=== PATIENT | male | born 1995 ===

== ENCOUNTER 2021-08-05 14:57 | Outpatient (REF) | payer SELFPAY | END 2021-08-05 14:58 | disposition home or self-care (01) | LOC: HO.HAP 14:57 | PROVIDERS: Visit Provider Internal Medicine | DX: Z13.89 Encounter for screening for other disorder (principal) ==

== ENCOUNTER 2023-01-31 14:07 | Outpatient (REF) | payer SELFPAY ==
--- NOTE | 2023-01-31 15:24 | MHC.AU.HA3 ---
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 Eye Assembler Repair Warranty: 09/13/2024 Screw Eye Assembler Loss and Damage Warranty: 09/13/2024 [facility] Service Plan: 09/13/2024 Battery Size: 675 Earmold/Dome/CShell/SlimTip:Microsonic M2000 full shell Blue Dispensed By: [facility] Date of Fittin07/15/2021 Left Ear: Make, Model, Color, Serial Number: Joselo Gomez P70-UP SN: [id number] Color: Black Screw Eye Assembler Repair Warranty: 09/13/2024 Screw Eye Assembler Loss and Damage Warranty: 09/13/2024 [facility] Service Plan: 09/13/2024 Battery Size: 675 Earmold/Dome/CShell/SlimTip: Microsonic M2000 full shell Blue Dispensed By: [facility] Date of Fittin07/15/2021 Follow-Up Summary: Romie reported his right tone hook broke and he taped it back together. Tubing extremely hard, discolored, and full of wax and moisture which had snapped end of tone hook. Cleaned both hearing aids and ear molds. Replaced both tone hooks and tubing. A listening check demonstrated that the hearing aids are in good working order. Recommendations: Hearing instrument maintenance in 6 months, or sooner if needed. Recommendations (Other): *No charge today as Hearing Aid Contract has date of service agreement to 09/13/2024 even though it states one year from date of fitting Diagnosis Code(s): Primary Diagnosis: H90.3 Bilateral Sensorineural Hearing Loss Signature: Provider: Archie Sauceda, [facility]
== END 2023-01-31 14:08 | disposition home or self-care (01) ==
LOC: HO.HAP 14:07
PROVIDERS: Visit Provider Internal Medicine
DX: Z13.89 Encounter for screening for other disorder (principal)

== ENCOUNTER 2023-09-20 12:47 | Outpatient (REF) | payer SELFPAY | END 2023-09-20 12:48 | disposition home or self-care (01) | LOC: HO.HAP 12:47 | PROVIDERS: PCP Internal Medicine; Visit Provider Internal Medicine | DX: Z13.89 Encounter for screening for other disorder (principal) ==

== ENCOUNTER 2023-10-13 09:10 | Outpatient (REF) | payer SELFPAY ==
--- NOTE | 2023-10-13 09:46 | MHC.AU.HA3 ---
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 Professor Repair Warranty: 09/13/2024 Neurology Professor Loss and Damage Warranty: 09/13/2024 [facility] Service Plan: 09/13/2024 Battery Size: 675 Earmold/Dome/CShell/SlimTip:Microsonic M2000 full shell Blue Type of Wax Guard: Dispensed By: [facility] Date of Fittin07/15/2021 Left Ear: Make, Model, Color, Serial Number: Joselo Gomez P70-UP SN: [id number] Color: Black Neurology Professor Repair Warranty: 09/13/2024 Neurology Professor Loss and Damage Warranty: 09/13/2024 [facility] Service Plan: 09/13/2024 Battery Size: 675 Assembly Machine Operator/Slim Tube: Earmold/Dome/CShell/SlimTip: Microsonic M2000 full shell Blue Dispensed By: [facility] Date of Fittin07/15/2021 Follow-Up Summary: Dispensed new earmolds. Fit looks good. Good subjective comfort and benefit reported. Gave him the old earmolds to keep as back up. Advised of remake period should there be any fit issues. Recommendations: Recommendations: Hearing instrument maintenance in 6 months, or sooner if needed. Please contact our clinic with any questions or concerns. Diagnosis Code(s): Primary Diagnosis: H90.3 Bilateral Sensorineural Hearing Loss Signature: Provider: Archie Crockett, [facility]
== END 2023-10-13 09:11 | disposition home or self-care (01) ==
LOC: HO.HAP 09:10
PROVIDERS: Visit Provider Internal Medicine
DX: Z46.1 Encounter for fitting and adjustment of hearing aid (principal); H90.3 Sensorineural hearing loss, bilateral
CPT/HCPCS: V5264

== ENCOUNTER 2024-07-19 10:24 | Outpatient (REF) | payer SELFPAY ==
--- NOTE | 2024-07-19 11:08 | MHC.AU.HA3 ---
Hearing Instrument Follow-Up- Binaural Date of Visit: 07/19/24 Right Ear: Make, Model, Color, Serial Number: Joselo Gomez P70-UP SN: [id number] Color: Black [employer] Repair Warranty: 09/13/2024 [employer] Loss and Damage Warranty: 09/13/2024 [facility] Service Plan: 09/13/2024 Battery Size: 675 Earmold/Dome/CShell/SlimTip:Microsonic M2000 full shell Blue Dispensed By: [facility] Date of Fittin07/15/2021 Left Ear: Make, Model, Color, Serial Number: Joselo Gomez P70-UP SN: [id number] Color: Black [employer] Repair Warranty: 09/13/2024 [employer] Loss and Damage Warranty: 09/13/2024 [facility] Service Plan: 09/13/2024 Battery Size: 675 Earmold/Dome/CShell/SlimTip: Microsonic M2000 full shell Blue Dispensed By: [facility] Date of Fittin07/15/2021 Follow-Up Summary: Romie reports concern that there is a hole in his right earmold. Notes he has been getting feedback. Found the ?hole to be a pock wilson in the earmold coating. Also noted bubbling in the coating on the external shell that earmold as well. Advised the earmolds are out of warranty but would not recommend replacing as they are less than one year old and still functional. Found both aids in need of maintenance. Stiff tubes, wax in tubes, tone hooks spinning. Cleaned aids, cleaned earmolds, replaced tubing and tone hooks. Listening check positive. Recommendations: Recommendations: Hearing instrument maintenance in 6 months, or sooner if needed. Diagnosis Code(s): Primary Diagnosis: H90.3 Bilateral Sensorineural Hearing Loss Signature: Provider: Archie Crockett, [facility]
== END 2024-07-19 10:25 | disposition home or self-care (01) ==
LOC: HO.HAP 10:24
PROVIDERS: Visit Provider Internal Medicine
DX: Z13.89 Encounter for screening for other disorder (principal)

== ENCOUNTER 2024-11-09 08:52 | Outpatient (REF) | payer SELFPAY ==
--- OUTSIDE RECORDS SUMMARY | 2024-11-09 09:05 | XMS_ITS | Data Portability ---
Author Organization [facility], , [facility] Address [address] [place] [address] Care Team Providers Care Talent Assistant Name Role Phone RASHEED MEJÍA Primary Care Provider Assessment Encounter Date Assessment Date Assessment LastModified by Organization Details LastModified Time 09/02/2020 09/02/2020 Patient agreed to this visit via a secure telehealth platform due to the COVID -19 pandemic. Patient understands this is a scheduled visit and the usual procedures with regard to billing and confidentialit y apply. Patient was notified that [place] [facility] [place] During the visit the patient? s medical history and medical record were reviewed. The patient was notified to call our office for worsening or urgent symptoms. [email or web address] Not available 09/02/2020 13:44:00 12/28/2022 12/28/2022 suggested carbamide peroxide otc for 50 % cerumen obstruction bilaterally [email or web address] Not available 12/28/2022 09:14:40 Plan of Treatment Reminders Order Date Submit Date Provider Last Modified By Organization Details Last Modified Time Details Appointments None recorded. Lab CBC 2023 [facility], [address] [place], [address], 10:47:37 BMP, serum or plasma 2023 [facility], [address] [place], [address], 09:40:25 iron + total iron-bindin g capacity (TIBC), serum 2023 [facility], [address] [place] [address], [address], 4 09:40:26 TSH, serum or plasma 2023 024 [facility], [address] [place] [address], [address], 4 16:02:58 BMP, serum or plasma 2022 023 [facility], [address] [place] [address], [address], 3 13:54:41 lipid panel, serum 2022 023 [facility], [address] [place] [address], [address], 3 13:54:42 HIV (1+2) antibodies, EIA, serum, reflex HIV-1 western blot (WB) 2021 022 [facility], [address] [place] [address], [address], 2 08:47:27 CT + NG DNA, PCR, unspecified specimen 2021 022 [facility], [address] [place] [address], [address], 2 14:00:19 RPR (rapid plasma reagin), serum 2021 022 [facility], [address] [place] [address], [address], 2 14:58:00 hsv (1+2) igg, serum 2021 022 [facility], [address] [place] [address], [address], 2 08:47:28 Referral orthopedic referral - left patellar pain for years 2020 021 [email or web address] [facility], [address] [facility], [place], [address], 1 12:36:27 Procedures trans-thora cic echocardiog ary (TTE) (PROC) - persistent orthostasis eval chamber size valve function, obstruction /HOCM physiologyn o HOCM signs on exam 2023 04 024 ELÍAS [facility], [address] [place], [address], 4 14:44:13 Surgeries None recorded. Imaging None recorded. Medication Orders None recorded. Patient TargetsNo targets recorded. Patient Instructions Encounter Date Encounter Id Patient Instructions Last Modified By Organization Details Last Modified Time 12/28/2022 [id number] Well Visit, Ages 18 to 65: Care Instructions [email or web address] Not available 12/28/2022 09:14:41 Reason for Referral Orthopedic Referral for Pain in left knee left patellar pain for years Referring Physician: Rasheed Mejía, Family Medicine, Encounter Date: 09/02/2020 Results Created Date Observation Date Name Description Value Unit Range Abnormal Flag Note LastModifiedBy Organization Detail LastModifiedTime 11/27/19 22 11/28/2021 HIV 1/2 ANTIG EN/AN TIBOD Y,FOU RTH GENER ATION W/RFL HIV Ag/Ab, 4TH gen NON-RE ACTIVE non-re active normal HIV-1 antig en and HIV-1 /HIV- 2 antib odies were not detec ha. There is no labor atory evide nce of HIV infec tion. PLEAS E NOTE: This infor matio n has been discl osed to you from recor ds whose confi denti ality may be prote cted by state law. If your state requi res such prote ction , then the state law prohi bits you from [facility] [place] [facility] er discl osure of the infor matio n witho ut the speci fic writt en conse nt of the perso n to whom it perta ins, or as other perales permi tted by law. A gener al autho rizat ion for the relea se of medic al or other infor matio n is NOT suffi cient for this purpo se. For addit ional infor jose luis alegria pleapril e refer to http: //[facility] viviane alegria.que stdia gnost ics.c om/fa q/FAQ 106 (This link is being provi ded for infor jose luis felton/ educa leanne l purpo ses only. ) The perfo rmanc e of this assay has not been clini chema valid ated in patie nts less than 2 years old. Not Available [facility] [address], [address], 11/28/2021 08:47:27 11/27/19 22 11/28/2021 HSV 1/2 IGG,T YPE SPECI FIC AB hsv 1 IgG, type specific Ab <0.90 index normal Not Available [facility] [address], [address], 11/28/2021 08:47:28 11/27/19 22 11/28/2021 HSV 1/2 IGG,T YPE SPECI FIC AB hsv 2 IgG, type specific Ab <0.90 index normal Index Inter preta tion ----- ----- ----- ---- <0.90 Negat vicente 0.90- 1.09 Equiv ocal >1.09 Posit vicente This assay utili zes recom binan t type- speci fic antig ens to diffe renti ate HSV-1 from HSV-2 infec tions . A posit vicente resul t canno t disti nguis h betwe en recen t and past infec tion. If recen t HSV infec tion is suspe cted but the resul ts are negat vicente or equiv ocal, the assay shoul d be repea ha in 4-6 weeks . The perfo rmanc e tara cteri stics of the assay have not been estab lishe d for pedia tric popul ation s, immun ocomp romis ed patie nts, or neona briseida scree frank. For addit ional infor matio n, pleas e refer to http: //[facility] Andra stDia gnost ics.c om/fa q/FAQ 118 (This link is being provi ded for infor matio nal/ educa leanne l purpo ses only. ) Not Available [facility] [address] [place], [place], [address], 11/28/2021 08:47:28 11/27/19 22 11/28/2021 HEPAT ITIS C AB W/REF L TO HCV RNA, QN, PCR hepatitis C antibody NON-RE ACTIVE non-re active normal Not Available [facility] [address] [place], [place], [address], 11/28/2021 08:47:28 11/27/19 22 11/28/2021 HEPAT ITIS C AB W/REF L TO HCV RNA, QN, PCR index <0.02 <1.00 normal HCV antib darian was non-r eacti ve. There is no labor atory evide nce of HCV infec tion. In most cases , no furth er actio n is requi red. Howev er, if recen t HCV expos ure is suspe cted, a test for HCV RNA (test code 84408 ) is sugge sted. For addit ional infor jose luis alegria pleas e refer to http: //[facility] andra stdia gnost ics.c om/fa q/FAQ 22v1 (This link is being provi ded for infor matio nal/ educa leanne l purpo ses only. ) Not Available [facility] [address], [place], [address], 11/28/2021 08:47:28 11/27/19 22 12/03/2021 RPR RPR NON-RE ACTIVE nonrea ctive Not Available [address], [place], [address], 12/03/2021 14:58:00 11/28/19 22 12/01/2021 CHLAM YDIA/ GC, URINE GORDON N. gonorrhoeae GC NEG negati ve normal Not Available [address], [address], 12/01/2021 14:00:19 11/28/19 22 12/01/2021 CHLAM YDIA/ GC, URINE GORDON C. trachomatis CT NEG negati ve normal Not Available [address], [address], 12/01/2021 14:00:19 01/27/20 22 01/27/2022 BASIC METAB OLIC PANEL sodium 138 mmol/ L 133-14 6 Not Available [facility] [address] [place], [address], 01/27/2022 00:29:09 01/27/20 22 01/27/2022 BASIC METAB OLIC PANEL chloride 102 mmol/ L 96-108 Not Available [facility] [address] [place], [address], 01/27/2022 00:29:09 01/27/20 22 01/27/2022 BASIC METAB OLIC PANEL potassium 4.0 mmol/ L 3.3-5. 1 Not Available [facility] [address] [place], [address], 01/27/2022 00:29:09 01/27/20 22 01/27/2022 BASIC METAB OLIC PANEL CO2 26 mmol/ L 21-35 Not Available [facility] ([facility]) [address] [place], [address], 01/27/2022 00:29:09 01/27/20 22 01/27/2022 BASIC METAB OLIC PANEL BUN 13 mg/dL 6-19 Not Available [facility] [address] [place], [address], 01/27/2022 00:29:09 01/27/20 22 01/27/2022 BASIC METAB OLIC PANEL creatinine 0.90 mg/dL 0.5-1. 5 Not Available [facility] [address] [place], [address], 01/27/2022 00:29:09 01/27/20 22 01/27/2022 BASIC METAB OLIC PANEL glucose 95 mg/dL 70-99 Not Available [facility] [address] [place], [address], 01/27/2022 00:29:09 01/27/20 22 01/27/2022 BASIC METAB OLIC PANEL calcium 8.5 mg/dL 8.4-10 .3 Not Available [facility] [address] [place], [address], 01/27/2022 00:29:09 01/27/20 22 01/27/2022 BASIC METAB OLIC PANEL eGFR >120 mL/mi n/1.7 3m2 >59 Estim ated glome rular filtr ation rate calcu lated using the CKD-E PI refit equat ion. Not Available [facility] [address] [place], [address], 01/27/2022 00:29:09 01/27/20 22 01/27/2022 BASIC METAB OLIC PANEL anion gap 14 mmol/ L 10-20 Not Available [facility] [address] [place], [address], 01/27/2022 00:29:09 01/27/20 22 01/27/2022 CPK (CREA ELAN KINAS E) creatine kinase 61 U/L 35-232 Not Available [facility] [address] [place], [address], 01/27/2022 00:29:11 01/27/20 22 01/27/2022 CBC AND DIFFE RENTI AL WBC 5.09 K/uL 4.00-1 1.00 Not Available [facility] [address] [place], [address], 01/27/2022 00:41:04 01/27/20 22 01/27/2022 CBC AND DIFFE RENTI AL RBC 4.56 M/uL 4.48-5 .88 Not Available [facility] ([facility]) [address] [place], [address], 01/27/2022 00:41:04 01/27/20 22 01/27/2022 CBC AND DIFFE RENTI AL HGB 13.2 g/dL 13.4-1 7.5 low Not Available [facility]) [address] [place] [address], [address], 01/27/2022 00:41:04 01/27/20 22 01/27/2022 CBC AND DIFFE RENTI AL HCT 38.1 % 38.0-5 1.0 Not Available [facility] ([facility]) [address] [place], [address], 01/27/2022 00:41:04 01/27/20 22 01/27/2022 CBC AND DIFFE RENTI AL plt 163 K/uL 140-43 0 Not Available [facility] ([facility]) [address] [place] [address], [address], 01/27/2022 00:41:04 01/27/2001/27/2022 CBC AND DIFFE RENTI AL MCV 83.6 fL 78.0-9 7.0 Not Available [facility] ([facility]) [address] [place] [address], [address], 01/27/2022 00:41:04 01/27/2001/27/2022 CBC AND DIFFE RENTI AL MCH 28.9 pg 25.0-3 3.0 Not Available [facility] ([facility]) [address] [place] [address], [address], 01/27/2022 00:41:04 01/27/20 22 01/27/2022 CBC AND DIFFE RENTI AL MCHC 34.6 g/dL 32.0-3 6.0 Not Available [facility] ([facility]) [address] [place] [address], [address], 01/27/2022 00:41:04 01/27/20 22 01/27/2022 CBC AND DIFFE RENTI AL RDW 14.1 % 11.0-1 5.0 Not Available [facility] ([facility]) [address] [place] [address], [address], 01/27/2022 00:41:04 01/27/20 22 01/27/2022 CBC AND DIFFE RENTI AL MPV 10.7 fL 8.4-12 .8 Not Available [facility] ([facility]) [address] [place] [address], [address], 01/27/2022 00:41:04 01/27/20 22 01/27/2022 CBC AND DIFFE RENTI AL NRBC 0.00 /100_ WBCs 0 Not Available [facility] ([facility]) [address] [place] [address], [address], 01/27/2022 00:41:04 01/27/20 22 01/27/2022 CBC AND DIFFE RENTI AL absolute NRBC 0.00 K/uL 0 Not Available [facility] ([facility]) [address] [place] [address], [address], 01/27/2022 00:41:04 01/27/20 22 01/27/2022 CBC AND DIFFE RENTI AL diff method Auto Not Available [facility] ([facility]) [address] [place] [address], [address], 01/27/2022 00:41:04 01/27/20 22 01/27/2022 CBC AND DIFFE RENTI AL neuts 46.9 % 43.0-7 5.0 Not Available [facility] ([facility]) [address] [place] [address], [address], 01/27/2022 00:41:04 01/27/20 22 01/27/2022 CBC AND DIFFE RENTI AL lymphs 40.9 % 18.2-4 7.4 Few atypi preston Lymph s seen. Not Available [facility] ([facility]) [address] [place], [address], 01/27/2022 00:41:04 01/27/20 22 01/27/2022 CBC AND DIFFE RENTI AL monos 10.0 % 4.00-1 1.00 Not Available [facility] ([facility]) [address] [place], [address], 01/27/2022 00:41:04 01/27/20 22 01/27/2022 CBC AND DIFFE RENTI AL eos 0.8 % 0.0-8. 0 Not Available [facility] ([facility]) [address] [place], [address], 01/27/2022 00:41:04 01/27/20 22 01/27/2022 CBC AND DIFFE RENTI AL basos 0.8 % 0.0-2. 0 Not Available [facility] ([facility]) [address] [place], [address], 01/27/2022 00:41:04 01/27/20 22 01/27/2022 CBC AND DIFFE RENTI AL granulocytes , immature (%) 0.6 % 0.0-0. 9 Not Available [facility] ([facility]) [address] [place], [address], 01/27/2022 00:41:04 01/27/20 22 01/27/2022 CBC AND DIFFE RENTI AL absolute neuts 2.39 K/uL 1.80-7 .70 Not Available [facility] ([facility]) [address] [place], [address], 01/27/2022 00:41:04 01/27/20 22 01/27/2022 CBC AND DIFFE RENTI AL absolute lymphs 2.08 K/uL 1.00-3 .10 Not Available [facility] ([facility]) [address] [place], [address], 01/27/2022 00:41:04 01/27/20 22 01/27/2022 CBC AND DIFFE RENTI AL absolute monos 0.51 K/uL 0.20-0 .80 Not Available [facility] ([facility]) [address] [place], [address], 01/27/2022 00:41:04 01/27/20 22 01/27/2022 CBC AND DIFFE RENTI AL absolute eos 0.04 K/uL 0.00-0 .80 Not Available [facility] ([facility]) [address] [place], [address], 01/27/2022 00:41:04 01/27/20 22 01/27/2022 CBC AND DIFFE RENTI AL absolute basos 0.04 K/uL 0.00-0 .09 Not Available [facility] ([facility]) [address] [place], [address], 01/27/2022 00:41:04 01/27/20 22 01/27/2022 CBC AND DIFFE RENTI AL granulocytes , immature 0.03 K/uL 0.00-0 .05 Not Available [facility] ([facility]) [address] [place], [address], 01/27/2022 00:41:04 01/28/20 22 01/27/2022 URINA LYSIS W/REF FARSHAD URINE CULTU RE color IRMA yellow abnormal Not Available [facility] [address] [place], [address], 01/27/2022 00:11:04 01/28/20 22 01/27/2022 URINA LYSIS W/REF FARSHAD URINE CULTU RE clarity Clear Not Available [facility] ([facility]) [address] [place], [address], 01/27/2022 00:11:04 01/28/20 22 01/27/2022 URINA LYSIS W/REF FARSHAD URINE CULTU RE glucose Negati ve negati ve Not Available [facility] ([facility]) [address] [place], [address], 01/27/2022 00:11:04 01/28/20 22 01/27/2022 URINA LYSIS W/REF FARSHAD URINE CULTU RE bili Negati ve negati ve Not Available [facility] ([facility]) [address] [place], [address], 01/27/2022 00:11:04 01/28/20 22 01/27/2022 URINA LYSIS W/REF FARSHAD URINE CULTU RE ketones Trace negati ve abnormal Not Available [facility] ([facility]) [address] [place], [address], 01/27/2022 00:11:04 01/28/20 22 01/27/2022 URINA LYSIS W/REF FARSHAD URINE CULTU RE specific gravity 1.025 1.005- 1.030 Not Available [facility] ([facility]) [address] [place], [address], 01/27/2022 00:11:04 01/28/20 22 01/27/2022 URINA LYSIS W/REF FARSHAD URINE CULTU RE blood Negati ve negati ve Not Available [facility] ([facility]) [address] [place], [address], 01/27/2022 00:11:04 01/28/20 22 01/27/2022 URINA LYSIS W/REF FARSHAD URINE CULTU RE pH 6.0 5.0-8. 0 Not Available [facility] ([facility]) [address] [place], [address], 01/27/2022 00:11:04 01/28/20 22 01/27/2022 URINA LYSIS W/REF FARSHAD URINE CULTU RE protein Negati ve negati ve Not Available [facility] ([facility]) [address] [place], [address], 01/27/2022 00:11:04 01/28/20 22 01/27/2022 URINA LYSIS W/REF FARSHAD URINE CULTU RE nitrite Negati ve negati ve Not Available [facility] ([facility]) [address] [place], [address], 01/27/2022 00:11:04 01/28/20 22 01/27/2022 URINA LYSIS W/REF FARSHAD URINE CULTU RE leukocyte esterase, ur Negati ve negati ve Not Available [facility] ([facility]) [address] [place], [address], 01/27/2022 00:11:04 01/28/20 22 01/27/2022 COVID DRAGAN ANNIE RESPI RATOR Y VIRAL ORDER (PRO) test ordered COVID, Flu has been ordere d Not Available [facility] [address] [place] [address], [address], 01/27/2022 01:11:33 01/28/20 22 01/27/2022 COVID DRAGAN ANNIE RESPI RATOR Y VIRAL ORDER (PRO) specimen source/descr iption NASOPH LELE AL SWAB Not Available [facility] ([facility]) [address] [place], [address], 01/27/2022 01:11:33 01/28/20 22 01/27/2022 COVID DRAGAN ANNIE RESPI RATOR Y VIRAL ORDER (PRO) influenza A PCR Not Detect ed not detect ed Not Available [facility] ([facility]) [address] [place], [address], 01/27/2022 01:11:33 01/28/20 22 01/27/2022 COVID DRAGAN ANNIE RESPI RATOR Y VIRAL ORDER (PRO) influenza B PCR Not Detect ed not detect ed Not Available [facility] ([facility]) [address] [place], [address], 01/27/2022 01:11:33 01/28/20 22 01/27/2022 COVID DRAGAN ANNIE RESPI RATOR Y VIRAL ORDER (PRO) sars-cov 2 (covid-19) PCR Not Detect ed not detect ed SARS- CoV-2 not detec ha Negat vicente resul ts do not precl ude SARS- CoV-2 infec tion and shoul d not be used as the sole basis for patie nt manag ement decis ions. Negat vicente resul ts must be combi sakshi with clini preston obser vatio ns, patie nt histo ry, and epide miolo gical infor matio n. This test has been autho rized by the FDA under an Emerg ency Use Autho rizat ion (EUA) for use by autho rized labor atori es. Not Available [facility] (Out[facility]) [address] [place], [address], 01/27/2022 01:11:33 12/29/19 23 12/28/2022 BASIC METAB OLIC PANEL glucose 74 mg/dL 70-100 Not Available [address], [address], 12/28/2022 13:54:41 12/29/19 23 12/28/2022 BASIC METAB OLIC PANEL BUN 16 mg/dL 7-18 Not Available [address], [address], 12/28/2022 13:54:41 12/29/19 23 12/28/2022 BASIC METAB OLIC PANEL creatinine 1.0 mg/dL 0.8-1. 3 Not Available [address], [address], 12/28/2022 13:54:41 12/29/19 23 12/28/2022 BASIC METAB OLIC PANEL B/C 16.0 ratio Not Available [address], [address], 12/28/2022 13:54:41 12/29/1912/28/2022 BASIC METAB OLIC PANEL GFR >=60ML /MIN mL/mi n normal >=60m L/min - Lanie l or midly reduc ed <60mL /min- Decre ased kidne y funct ion <15mL /min - Kidne y failu re [facility] calcu lates estim ated Glome rular Filtr ation Rate (eGFR ) using the Chron ic Kidne y Disea se Epide miolo gy Colla borat ion (CKD- EPI) Equat ion (Ryann moon et. al 2020) as recom wanda d by the Natio nal Kidne y Found ation . eGFR is based on age, serum creat inine , and sex. CKD-E PI does not calcu late eGFR by race, does not apply to child brian (age <18 years ), and shoul d not be used in pregn adrian. Not Available [address], [address], 12/28/2022 13:54:41 12/29/1912/28/2022 BASIC METAB OLIC PANEL sodium 142 mmol/ L 136-14 5 Not Available [address], [address], 12/28/2022 13:54:41 12/29/19 23 12/28/2022 BASIC METAB OLIC PANEL potassium 4.2 mmol/ L 3.5-5. 1 Not Available [address], [address], 12/28/2022 13:54:41 12/29/19 23 12/28/2022 BASIC METAB OLIC PANEL chloride 104 mmol/ L 96-107 Not Available [address], [address], 12/28/2022 13:54:41 12/29/19 23 12/28/2022 BASIC METAB OLIC PANEL anion gap 11.0 5.0-15 .0 Not Available [address], [address], 12/28/2022 13:54:41 12/29/19 23 12/28/2022 BASIC METAB OLIC PANEL CO2 27 mmol/ L 21-32 Not Available [address], [address], 12/28/2022 13:54:41 12/29/19 23 12/28/2022 BASIC METAB OLIC PANEL calcium 8.8 mg/dL 8.5-10 .3 Not Available [address], [address], 12/28/2022 13:54:41 12/29/19 23 12/28/2022 LIPID PANEL cholesterol 129 mg/dL <200 mg/dl Raudel able 200-2 39 mg/dl Borde rline High >240 mg/dl High Not Available [address], [address], 12/28/2022 13:54:42 12/29/19 23 12/28/2022 LIPID PANEL triglyceride s 114 mg/dL <150 mg/dL Lanie l 150-1 99 mg/dL Borde rline High 200-4 99 mg/dL High >500 mg/dL Very High Not Available [address], [address], 12/28/2022 13:54:42 12/29/19 23 12/28/2022 LIPID PANEL direct HDL 30 mg/dL <40 mg/dl - Major Risk for CHD >60 mg/dl - Negat vicente Risk for CHD Not Available [address], [address], 12/28/2022 13:54:42 12/29/19 23 12/28/2022 DIREC T LDL direct LDL 74 mg/dL RISK CATEG ORY LDL GOAL _ CHD or CHD Risk Equiv alent s <100 mg/dl (10-y ear risk >20%) 2+ Risk Facto rs <130 mg/dl (10-y ear risk <= 20%) 0-1 Risk Facto r? <160 mg/dl ? Almos t all peopl e with 0-1 risk facto r have a 10 year risk <10%, thus 10 year risk asses ment in peopl e with 0-1 risk facto r is not akinanabel gregg. Not Available [address], [address], 12/28/2022 13:54:43 10/05/1910/05/2023 CBC WBC 5.04 K/? ? ?L 4.23-9 .07 Not Available [address], [address], 10/05/2023 10:47:37 10/05/19 24 10/05/2023 CBC RBC 5.32 M/? ? ?L 4.63-6 .08 Not Available [address], [address], 10/05/2023 10:47:37 10/05/19 24 10/05/2023 CBC HGB 15.2 g/dL 13.7-1 7.5 Not Available [address], [address], 10/05/2023 10:47:37 10/05/19 24 10/05/2023 CBC HCT 45.9 % 40.1-5 1.0 Not Available [address], [address], 10/05/2023 10:47:37 10/05/19 24 10/05/2023 CBC MCV 86.3 fL 79.0-9 2.2 Not Available [address], [address], 10/05/2023 10:47:37 10/05/19 24 10/05/2023 CBC MCH 28.6 pg 25.7-3 2.2 Not Available [address], [address], 10/05/2023 10:47:37 10/05/19 24 10/05/2023 CBC MCHC 33.1 g/dL 32.3-3 6.5 Not Available [address], [address], 10/05/2023 10:47:37 10/05/19 24 10/05/2023 CBC plt 169 K/? ? ?L 163-33 7 Not Available [address], [address], 10/05/2023 10:47:37 10/05/19 24 10/05/2023 CBC MPV 11.7 fL 9.4-12 .4 Not Available [address], [address], 10/05/2023 10:47:37 10/05/19 24 10/05/2023 CBC neut% 45.0 % 34.0-6 7.9 Not Available [address], [address], 10/05/2023 10:47:37 10/05/19 24 10/05/2023 CBC neut# 2.27 1.78-5 .38 Not Available [address], [address], 10/05/2023 10:47:37 10/05/19 24 10/05/2023 CBC lymph % 42.1 % 21.8-5 3.1 Not Available [address], [address], 10/05/2023 10:47:37 10/05/19 24 10/05/2023 CBC lymph # 2.12 K/? ? ?L 1.32-3 .57 Not Available [address], [address], 10/05/2023 10:47:37 10/05/19 24 10/05/2023 CBC mono% 8.9 % 5.3-12 .2 Not Available [address], [address], 10/05/2023 10:47:37 10/05/19 24 10/05/2023 CBC mono# 0.45 0.30-0 .82 Not Available [address], [address], 10/05/2023 10:47:37 10/05/19 24 10/05/2023 CBC eo% 3.2 % 0.8-7. 0 Not Available [address], [address], 10/05/2023 10:47:37 10/05/19 24 10/05/2023 CBC eo# 0.16 0.04-0 .54 Not Available [address], [address], 10/05/2023 10:47:37 10/05/19 24 10/05/2023 CBC baso% 0.6 % 0.2-1. 2 Not Available [address], [address], 10/05/2023 10:47:37 10/05/19 24 10/05/2023 CBC baso# 0.03 0.00-0 .08 Not Available [address], [address], 10/05/2023 10:47:37 10/05/19 24 10/05/2023 CBC RDW-CV 13.2 % 11.6-1 4.4 Not Available [address], [address], 10/05/2023 10:47:37 10/05/19 24 10/05/2023 CBC Ig% 0.200 % 0.000- 1.500 Ig % >0.5 Indic ates possi ble Left Shift Not Available [address], [address], 10/05/2023 10:47:37 10/05/19 24 10/05/2023 CBC Ig# 0.010 0.000- 0.093 Not Available [address], [address], 10/05/2023 10:47:37 10/05/19 24 10/05/2023 CBC NRBC% 0.0 % 0.0-0. 2 Not Available [address], [address], 10/05/2023 10:47:37 10/05/19 24 10/05/2023 CBC NRBC# 0.000 0.000- 0.012 Not Available [address], [address], 10/05/2023 10:47:37 10/05/19 24 10/05/2023 TSH TSH 3.03 uIU/m L 0.50-6 .00 The Ameri can Colle ge of Endoc rinol ogy and Ameri can Thyro id Assoc iatio n recom mend goal TSH value s betwe en 0.4-4 .0 mIU/m L. Not Available [address], [address], 10/05/2023 16:02:58 10/05/19 24 10/06/2023 BASIC METAB OLIC PANEL glucose 87 mg/dL 70-100 Not Available [address], [address], 10/06/2023 09:40:25 10/05/19 24 10/06/2023 BASIC METAB OLIC PANEL BUN 14 mg/dL 7-18 Not Available [address], [address], 10/06/2023 09:40:25 10/05/19 24 10/06/2023 BASIC METAB OLIC PANEL creatinine 0.9 mg/dL 0.8-1. 3 Not Available [address], [address], 10/06/2023 09:40:25 10/05/1910/06/2023 BASIC METAB OLIC PANEL B/C 15.6 ratio Not Available [address], [address], 10/06/2023 09:40:25 10/05/1910/06/2023 BASIC METAB OLIC PANEL GFR >=60ML /MIN mL/mi n normal >=60m L/min - Lanie l or midly reduc ed <60mL /min- Decre ased kidne y funct ion <15mL /min - Kidne y failu re [facility] calcu lates estim ated Glome rular Filtr ation Rate (eGFR ) using the Chron ic Kidne y Disea se Epide miolo gy Colla borat ion (CKD- EPI) Equat ion (Ryann moon et. al 2020) as recom wanda d by the Natio nal Kidne y Found ation . eGFR is based on age, serum creat inine , and sex. CKD-E PI does not calcu late eGFR by race, does not apply to child brian (age <18 years ), and shoul d not be used in pregn adrian. Not Available [address], [address], 10/06/2023 09:40:25 10/05/1910/06/2023 BASIC METAB OLIC PANEL sodium 143 mmol/ L 136-14 5 Not Available [address], [address], 10/06/2023 09:40:25 10/05/1910/06/2023 BASIC METAB OLIC PANEL potassium 4.8 mmol/ L 3.5-5. 1 Not Available [address], [address], 10/06/2023 09:40:25 10/05/1910/06/2023 BASIC METAB OLIC PANEL chloride 106 mmol/ L 96-107 Not Available [address], [address], 10/06/2023 09:40:25 10/05/19 24 10/06/2023 BASIC METAB OLIC PANEL anion gap 8.9 5.0-15 .0 Not Available [address], [address], 10/06/2023 09:40:25 10/05/19 24 10/06/2023 BASIC METAB OLIC PANEL CO2 28 mmol/ L 21-32 Not Available [address], [address], 10/06/2023 09:40:25 10/05/19 24 10/06/2023 BASIC METAB OLIC PANEL calcium 9.0 mg/dL 8.5-10 .3 Not Available [address], [address], 10/06/2023 09:40:25 10/05/19 24 10/06/2023 IRON PANEL iron 74 ug/dL 35-150 Not Available [address], [address], 10/06/2023 09:40:26 10/05/19 24 10/06/2023 IRON PANEL T.I.B.C. 244 ug/dL 250-45 0 low Not Available [address], [address], 10/06/2023 09:40:26 10/05/19 24 10/06/2023 IRON PANEL % saturation 30.3 % Not Available [address], [address], 10/06/2023 09:40:26 09/24/19 21 09/23/2020 xr knee 4 or more views (left ) TECHNI QUE: XR KNEE 4 OR MORE VIEWS (LEFT) CLINIC AL HISTOR Y: Status post sports injury . Pain. FINDIN GS: There is subtle increa sed soft tissue densit y of the infrap atella r bursa compat ible with probab le bursit is. No eviden ce of Amauri -Schla tter diseas e. Patell ofemor al articu lation demons trates no abnorm alitie s. Medial and latera l knee joint compar tments demons trate no eviden ce of osteoc hondra l lesion . There are no radiop aque loose intra- articu lar bodies . No eviden ce of fractu re. CONCLU JOANA: No eviden ce of knee joint fractu re. Infrap atella r bursa increa sed soft tissue densit y compat ible with bursit is. Electr onical ly Signed by: Diamond thomas on 021 11:40 AM Interp reted by: Diamond thomas MD Signed by: Diamond thomas MD 1 Final result Pt states he was playin g softba ll and collid ed into anothe r player [place] [facility] [address] [place] [address], [address], 09/23/2020 20:31:41 10/20/19 21 10/19/2020 xr chest Pa and later al 2 views Reason for exam (per EHR order) : Chest Pain TECHNI QUE: Fronta l and latera l radiog raphs of the chest. COMPAR DIRK: None. FINDIN GS: Suppor t Device s / Implan ts / Lines and Tubes: None. Lungs and Pleura : The lungs are clear with no focal consol idatio n. No eviden ce of pulmon nayely edema. No pleura l effusi on. No pneumo thorax or displa jacob rib fractu res. Cardio medias tinal Silhou ette: Normal . Miscel laneou s Findin gs: None. IMPRES JOANA: No acute abnorm ality. Electr onical ly Signed by: Dianelys Rubio on 021 4:51 AM Interp reted by: Dianelys Rubio MD Signed by: Dianelys Rubio MD 1 Final result LEFT SIDED CHEST PAIN x 2 HRS / PT STATES PAIN WITH DEEP INSPIR ATIONS DURING EXAM [place] [email or web address] [facility] [address] [facility], [place], [address], 10/19/2020 11:42:36 11/10/19 24 11/10/2023 adult ECHO TTE Table format ting from the origin al result was not includ ed. Images from the origin al result were not includ ed. Result Report Earline vuong Name: Romie Gaffney i Class: Outpat ient Sonogr apher: Ruddy Guzman Perfor grabiel Physic josh: None Select ed Suppor ting Staff: None Select ed Orderi ng Prov: Jemal river, Rasheed Reyes Primar y Care Physic josh: Rasheed Eric Chiquismcgowan Diagno sis: Orthos tatic hypote nsion [I95.1 (ICD-1 0-CM)] Reason For Exam: orthos tatic hypote nsion Other Indica tion (Pleas e use free text) Proced ure(s) Perfor med: Compre hensiv e Echo (TTE) Date Perfor med: 11/10/19 24 Access ion #: [id number] Result Status : Final Adult Echo TTE: Earline vuong Commun icatio n Not Releas ed Not seen Echo Findin gs Genera l Findin gs The image qualit y was good (2). Techni que(s) used in the evalua tion: Color flow Dopple r and Spectr al Dopple r. The predom inant rhythm during the study was sinus. Left Ventri saba The left ventri saba is normal in size. There is normal wall thickn ess. There is normal left ventri cular systol ic functi on. The LV ejecti on fracti on is 62% (calcu lated via biplan e measur ement) . There are no wall motion abnorm alitie s. LV diasto lic functi on appear s within normal limits for age. The E/A ratio is 1.5. The e' septal wave veloci ty is 13.1 cm/s. The e' latera l wave veloci ty is 15.1 cm/s. The averag e E/e' ratio is 6.7. Right Ventri saba The right ventri saba is normal in size. The RV basal dimens ion is 39 mm. There is normal right ventri cular systol ic functi on. TAPSE is 23 mm. RV S' wave is 11.7 cm/s. IAS/IV S The intera trial septum appear s normal . There is no eviden ce of patent forame n ovale (PFO). There is normal septal struct ure. There is no eviden ce of a ventri cular septal defect . Left Atrium The left atrium is normal in size. The left atrial volume index by BSA is 25 mL/m2. There are normal flow patter ns in the pulmon nayely vein. Right Atrium The right atrium is normal in size. The right atrial area is 15 cm2. The IVC is normal in size with normal inspir atory collap se. This is consis tent with normal RA pressu re. The IVC diamet er is 17 mm (lanie l <= 21 mm). Hepati c veins are normal in size. Aortic Valve The aortic valve is tricus pid with normal leafle ts. There is no aortic stenos is. The peak and mean aortic valve gradie nts are 4 mmHg and 2 mmHg respec tively . There is no aortic regurg itatio n. The visual ized portio ns of the thorac ic aorta appear normal in size. Mitral Valve The mitral valve appear s normal . There is no mitral stenos is. There is trace mitral regurg itatio n. Tricus pid Valve The tricus pid valve appear s normal . There is no tricus pid stenos is. There is trace tricus pid regurg itatio n. The RV systol ic pressu re was calcul ated at 16 mmHg (using TR peak veloci ty of 1.8 m/s and assumi ng an RA pressu re of 3 mmHg). Pulmon ic Valve The pulmon ic valve appear s normal . Perica rdium There is no perica rdial effusi on. There are no pleura l effusi ons. Compar idrk Findin gs There are no prior studie s for compar dirk. Routin e Measur ements Height : 173 cm Systol ic BP: 120 mmHg Weight : 66 kg Diasto lic BP: 80 mmHg Body Surfac e Area: 1.78 m2 LV Measur ements LVIDed 41 mm (Range : 42 - 58) LVIDes 31 mm (Range : <40) IVS 8 mm (Range : 6 - 11) PWT 8 mm (Range : 6 - 11) LV EF 62 Percen t (Range : 50 - 75) AV Measur ements Ao Sinus 33 mm (Range : <40) Asc Ao 33 mm (Range : <36) Other Measur ements LA A-P 25 mm (Range : 15 - 40) LA volume 44 mL LA volume index by BSA 25 mL/m2 (Range : 16 - 34) RV sys pressu re 16 mmHg Interp retati on Summar y Normal LV size and wall thickn ess. LV systol ic functi on is normal with EF 60 to 65%. There are no clear wall motion abnorm alitie s. Normal diasto lic functi on. Normal RV size and functi on. There is no hemody namica lly signif icant valvul ar diseas e. No prior study for compar dirk. Signed Electr onical ly signed by Mekhi Malone MD on 11/10/23 at 1438 EDT Barby villafuerte Physic ians Physic josh Role Mekhi Malone MD Attend ing Cardio logist [place] [facility] [address] [place] [address], [address], 11/23/2023 08:19:23 11/10/19 24 11/10/2023 trans -thor acic echoc ardio gram (TTE) (PROC ) No observ ation record ed. [address], [address], 01/11/2024 17:06:15 Result Notes None recorded. Problems Name Problem SNOMED Code Status Onset Date Resolution Date Notes Provider Name and Address Organization Details Recorded Time Bilateral hearing loss 92901558 Active 024 bilat aids Rasheed Mejía MD [address] [place] [address], [place], [phone] [place] [address] 16:28:26 Problem Notes None recorded. Procedures Surgical History Date Name Laterality Status Provider Name and Address Organization Details Recorded Time 8 Cerumen Removal - Irrigation/L avage completed Garrick Rodriguez MD [address] [place] [address], [phone], [facility] 03/20/2018 17:44:16 Imaging Results Imaging Date Name Status LastModified by Organization Details LastModified Time 09/23/2020 xr knee 4 or more views (left) completed rvigderman [facility] [address] [place] [address], [address], 09/23/2020 20:31:41 10/19/2020 xr chest Pa and lateral 2 views completed [email or web address] [facility] [address] [place] [address], [address], 10/19/2020 11:42:36 11/10/2023 adult ECHO TTE completed [facility] [address] [place] [address], [address], 11/23/2023 08:19:23 11/10/2023 trans-thoracic echocardiogram (TTE) (PROC) completed [address], [address], 01/11/2024 17:06:15 Procedure Notes None recorded. Medical Equipment None Reported. Allergies No known drug allergies Medications Name Sig Start Date Stop Date Status Note LastModified by Organization Details LastModified Time amoxicillin 500 mg capsule TAKE 1 CAPSULE BY MOUTH EVERY 8 HOURS FOR 10 DAYS 09/29 completed Not Available Not Available Not Available sulfamethox azole 800 mg-trimetho prim 160 mg tablet TAKE 1 TABLET BY MOUTH TWICE A DAY FOR 7 DAYS 12/28 completed Not Available Not Available Not Available amoxicillin 500 mg tablet Take 1 tablet every 8 hours by oral route for 10 days. 09/29 completed Not Available Not Available Not Available cyclopentol ate 1 % eye drops PUT 1 DROP INTO RIGHT EYE 3 TIMES A DAY FOR 1 WEEK THEN STOP 12/28 completed Not Available Not Available Not Available prednisolon e acetate 1 % eye drops,suspe nsion INSTILL ONE DROP INTO THE RIGHT EYE 4 TIMES A WEEK FOR ONE WEEK AND THEN TAPER 12/28 completed Not Available Not Available Not Available erythromyci n 5 mg/gram (0.5 %) eye ointment 0.5 INCH RIGHT EYE 3 TIMES A DAY FOR 7 DAYS 12/28 completed Not Available Not Available Not Available Ciprodex 0.3 %-0.1 % ear drops,suspe nsion INSTILL 4 DROPS INTO AFFECTED EAR(S) BY OTIC ROUTE 2 TIMES PER DAY FOR 7 DAYS 06/08 completed Not Available Not Available Not Available Flucelvax Quad (PF) 60 mcg (15 mcg x 4)/0.5 mL IM syringe TO BE ADMINISTE RED BY [employer] FOR IMMUNIZAT ION 06/08 completed Not Available Not Available Not Available Fluzone Quad (PF) 60 mcg (15 mcg x 4)/0.5 mL IM syringe 06/08 completed Not Available Not Available Not Available Vitals Date Recorded Body weight Body mass index (BMI) Body height Systolic blood pressure Diastolic blood pressure Provider Name and Address Organization Details Last Updated DateTime 11/25/2021 77724.45 g 23.3 kg/m2 171.45 cm 124 mm[Hg] 70 mm[Hg] Cleo Coffey [facility] 2 15:58:34 Date Recorded Body weight Heart rate Oxygen saturation Oxygen saturation in Arterial blood by Pulse oximetry Body mass index (BMI) Body height Systolic blood pressure Diastolic blood pressure Provider Name and Address Organization Details Last Updated DateTime 3 79859.6 3 g 71 /min 97 % 97 % 23.6 kg/m2 171.45 cm 118 mm[Hg] 72 mm[Hg] Cleo Coffey [facility] 3 08:38:31 Date Recorded Body height Heart rate Oxygen saturation Oxygen saturation in Arterial blood by Pulse oximetry Body mass index (BMI) Body weight Systolic blood pressure Diastolic blood pressure Provider Name and Address Organization Details Last Updated DateTime 3 171.45 cm 74 /min 98 % 98 % 23.8 kg/m2 05395.2 2 g 118 mm[Hg] 62 mm[Hg] Arielle Jaramillo [facility] 3 14:55:53 Date Recorded Body height Body mass index (BMI) Body weight Heart rate Oxygen saturation Oxygen saturation in Arterial blood by Pulse oximetry Systolic blood pressure Diastolic blood pressure Provider Name and Address Organization Details Last Updated DateTime 4 171.45 cm 23.1 kg/m2 81837.8 6 g 73 /min 98 % 98 % 116 mm[Hg] 61.99 mm[Hg] Negar Jacob [facility] 4 15:49:03 Social History Question Answer Notes LastModified by Organizat ion Details LastModified Time Tobacco Smoking Status Never Smoker 03/22/18LCMV Arielle Jaramillo, JUAN natasha, [facility] 05/13/2023 14:53:14 What Is Your Level Of Alcohol Consumption? Occasional Socially [email or web address] Information not available 12/28/2022 Do You Wear A Helmet When Biking? Yes Information not available 07/02/2016 What Is Your Level Of Caffeine Consumption? None Information not available 07/02/2016 How Much Tobacco Do You Chew? None Information not available 07/02/2016 Are You Currently Employed? Yes [email or web address] Information not available 12/28/2022 What Type Of Diet Are You Following? REGULAR Information not available 07/02/2016 Education 12 Information no t available 07/02/2016 What Is Your Occupation? [employer] [email or web address] Information not available 12/28/2022 Have There Been Any Changes To Your Family Or Social Situation? No [email or web address] Information not available 12/28/2022 Are There Any Guns Present In Your Home? No Information not available 07/02/2016 Do You Use Insect Repellent Routinely? No [email or web address] Information not available 12/28/2022 Live Alone Or With Others? With Others Information not available 07/02/2016 Marital Status Single Informatio n not available 07/02/2016 Mosquito Repellent Used Routinely Yes Information not available 07/02/2016 What Was The Date Of Your Most Recent Tobacco Screening? 05/13/2023 05/13/23MV [email or web address] Information not available 05/13/2023 How Many Children Do You Have? 0 Information not available 07/02/2016 What Is Your Relationship Status? Single Sex With Men Information not available 11/25/2021 Do You Use Your Seat Belt Or Car Seat Routinely? Yes [email or web address] Information not available 12/28/2022 Seat Belts Used Routinely Yes Information not available 07/02/2016 Are You Sexually Active? Yes Information not available 11/25/2021 Smoke Alarm In Home Yes Information not available 07/02/2016 Do You Have Smoke And Carbon Monoxide Detectors In Your Home? Yes [email or web address] Information not available 12/28/2022 Are You Passively Exposed To Smoke? No [email or web address] Information not available 12/28/2022 General Stress Level Low Information not available 07/02/2016 Do You Use Sunscreen Routinely? Yes Information not available 07/02/2016 Sex: Male Functional Status Question Answer Note LastModified by Organization D etails LastModified Time What is your exercise level? None [email or web address] Information not available 12/28/2022 Mental Status None recorded. Family History Nothing Reported Notes:bro epileptic M is wel l F with HTN Medical History No medical history recorded. Immunizations Vaccine Type Date Status Note Provider Name and Address Organization Details Recorded Time Influenza, split virus, quadrivalent, PF 07/02/20 16 completed Not Available [facility]/2019 02:31:44 Tdap 11/18/19 10 [facility] 17:53:51 DTaP 02/03/19 98 completed [facility]2016 16:33:01 DTaP 04/10/19 98 completed [facility]2016 16:33:19 DTaP 06/03/19 98 [facility] 16:33:39 DTaP 06/09/19 98 [facility] 16:34:09 DTaP 12/13/19 02 completed VINNIE Sánchez [facility] 10/01/2016 16:34:29 Hib (HbOC) 02/03/19 98 [facility] 16:34:51 Hib (HbOC) 04/10/19 98 completed Irma Mcbride, MA null, [facility] 10/01/2016 16:35:03 Hib (HbOC) 06/03/19 98 completed [facility]2016 16:35:16 Hib (HbOC) 03/07/19 99 completed [facility] [place] [facility]2016 16:35:35 Hep B, adult 12/07/18 98 completed [facility] [place] [facility]2016 16:36:09 Hep B, adult 01/07/19 98 completed [facility] [place] [facility]/2016 16:36:20 Hep B, adult 09/04/18 99 completed [facility] [place] [facility]/01/2016 16:36:46 HPV, unspecified formulation 10/17/19 13 completed [facility] [place] [facility]/01/2016 16:37:21 HPV, unspecified formulation 01/13/20 13 completed [facility] [place] [facility]/01/2016 16:37:37 HPV, unspecified formulation 02/13/20 14 completed [facility] [place] [facility] 10/01/2016 16:37:52 MMR 03/17/19 99 completed [facility] [place] [facility]/01/2016 16:38:10 MMR 01/10/20 03 completed [facility] [place] [facility] 10/01/2016 16:38:27 meningococcal ACWY, unspecified formulation 11/08/19 10 completed [facility] [place] [facility] 10/01/2016 16:38:56 meningococcal ACWY, unspecified formulation 01/01/20 15 completed [facility] [place] [facility]/01/2016 16:39:11 polio, unspecified formulation 02/03/19 98 completed [facility] [place] [facility]/01/2016 16:39:33 polio, unspecified formulation 04/10/19 98 completed Irma Mcbride, MA null, [facility] 10/01/2016 16:39:45 polio, unspecified formulation 12/23/18 98 completed Irma Huffmand, MA null, [facility] 10/01/2016 16:39:57 polio, unspecified formulation 12/13/19 02 completed Irma Mcbride, MA null, [facility] 10/01/2016 16:40:31 varicella 12/23/18 99 completed Irma Huffmand, MA null, [facility] 10/01/2016 16:41:25 polio, unspecified formulation 12/04/19 08 completed Irma Mcbride, MA null, [facility] 10/01/2016 16:41:58 varicella 12/04/19 08 completed [facility]2016 16:42:19 Influenza, split virus, quadrivalent, preservative 05/29/20 19 completed [facility] 06/08/2019 08:04:46 Influenza, split virus, quadrivalent, PF 05/13/20 23 cancelled patient objection Aura Alvarado MD [address] [place] [address], [phone], [facility] 05/13/2023 15:01:54 Tdap 02/14/20 22 completed Maria Eugenia Young [facility] 05/17/2022 15:19:32 Past Encounters Encounter ID Performer Location Encounter Start Date Encounter Closed Date Diagnosis/Indication Diagnosis SNOMED-CT Code Diagnosis ICD10 Code Diagnosis Note [id number] David Hines i, PT Physical Therapy, [address] [address] 09/03/2015 16:24:28 09/04/2015 09:49:24 Sprain, ankle joint, lateral 752012280 S93.499D [id number] David Hines i, PT Physical Therapy, [address] [address] 09/09/2015 13:26:16 09/09/2015 14:40:22 Sprain, ankle joint, lateral 304033056 S93.499D [id number] David Hines i, PT Physical Therapy, [address] [place] [address] 09/12/2015 14:33:24 09/12/2015 14:53:02 Sprain, ankle joint, lateral 561956976 S93.499D [id number] David Hines i, PT Physical Therapy, [address] [place] [address] 09/18/2015 16:59:12 09/22/2015 09:12:52 Sprain, ankle joint, lateral 380014205 S93.499D [id number] Rasheed Mejía MD , [facility], OFFICE [address] [place] [address] 07/02/2016 15:25:22 07/02/2016 16:15:14 Hearing loss 18321367 H90.3 Adult heal th examination 371291203 Z00.00 well examintrod uced to practicese en with mom Active or passive immunization 623390081 Z23 Congenital deafness 9582 8007 H90[address] Koenig, he may be candidate for implant pt comfortabl e with aids. [id number] Garrick Rodriguez MD , [facility], [address] [place] [address] 03/20/2018 17:18:26 03/20/2018 17:45:24 Otitis media 43320463 H66.92 [id number] Kiah Baxter D.O. , [facility], OFFICE [address] [place] [address] 03/22/2018 13:13:51 03/22/2018 13:52:45 Otitis externa 0210324 H60.92 Acute otitis media 15400 03 H66.92 [id number] Lance Escalona MD , [facility], [address] [place] [address] 09/29/2018 11:37:12 10/02/2018 10:15:19 Crushing injury of finger 78951477 S67.10XA Left ring finger PIP swelling after hyperexten joana injury during dodge ball yesterday. X-ray negative for fracture and intact alignment. Applied finger splint. Recommende d for 2 weeks. Ice and NSAIDs recommende d. Advised to contact the clinic if no improvemen t. Work note given. No skin laceration . [id number] MADISON Moreno , [facility], OFFICE [address] [place] [address] 06/08/2019 07:58:58 06/08/2019 10:52:40 Pain in left knee [id number] 87344 M25.562 No evidence of fracture or effusion, likely a ligament or tendon tear.Advis ed supportive treatment for the next several days to see how body responds to injury.Rec ommend RICE and 600 mg ibuprofen 3 x day for 3-4 days.If patient is not noticing any improvemen t in symptoms and cannot bear weight, will plan to refer to [facility] ortho clinic.Wor k note provided. 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[employer] hurts [employer] steps uses knee brace- helps running/sp orts referred [facility]o likely injection [id number] Rasheed Mejía MD , [facility], OFFICE [address] [place] [address] 11/25/2021 15:37:35 11/25/2021 17:21:29 Exposure to communicable disease 363273355 Z20.9 PreP discussedb est Rx'd at [facility], shown [facility] I am unfamiliar with dosing, assurring coverage, liver monitoring , proper use ane SE'sdiscus sed specifical ly herpes risk from known/inte nded contactreg uardless of exposure (immune ) statusSTD screen ordered Adult heal th examination 429788371 Z00.00 well exam [id number] Rasheed Mejía MD , [facility], OFFICE [address] [place] [address] 12/28/2022 08:21:50 12/28/2022 09:16:50 Adult health examination 473324771 Z00.00 well examis UTD with vaccines including HPV received at age 17covid x 3 or 4 he cant recall [facility] Dr Chowdhury from sports injury 01/2022 (struck in eye from dodgeball) 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 , 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 years Depression screening [id number] Z13.31 depression screening tool administer ed Screening for alcohol abuse [id number] Z13.39 Alcohol use screening tool administer ed Bilateral hearing loss [id number] H91.93 g[place]el [place] [facility] [place] [facility] [place] [facility] but comfortabl e with status quo [id number] Aura Alvarado MD , [facility], [address]ICE [address] [place] [address] 05/13/2023 14:45:28 05/13/2023 16:18:01 Active or passive immunization [id number] Z23 Pain of le ft knee joint [id number] 07706 M25.562 1 month of medial left knee pain after falling on it while making diving catch. Normal range of motion and no effusion or swelling. Trial physical therapy and anti-infla mmatory medication (ibuprofen ). If no improvemen t, would refer to sports med. 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, does well x occasional time out to rest he is orthos tatic by pulse examthere is no induced hocm murmer with arising or valsalva A/P baseline mild tachycardi abegin with bloodsand echo: persistent orthostasi seval chamber size valve function, obstructio n/HOCM physiology no HOCM signs on exam Health Concerns Section Related Observation LastModified by Organization Detai ls LastModified Time None Recorded Concern Status LastModified by Organization Details LastModified Time None Recorded Advance Directives Directive None Recorded Payers Encounter Date Sequence Insurance Name Policy Number Policy Geller Covered Member ID Geller Member ID Guarantor Name 09/02/2020 1 [facility] (O) [id number] Romie Lorenzozzi [id number] Mareo Fabozzi 11/25/2021 1 [place] [facility] [id number] Romie Chacko Fabozzi [id number] Mareo Fabozzi 12/28/2022 1 [place] [facility] ([place]) [id number] Romie Chacko Fabozzi [id number] Mareo Fabozzi 05/13/2023 1 [place] [facility] ([facility] [id number] Romie Chacko Fabozzi [id number] Mareo Fabozzi 10/04/2023 1 [place] [facility] ([facility] [id number] Romie Chacko Fabozzi [id number] Mareo Fabozzi Notes Date Note Type Note Provider Name and Address Organization Details Recorded Time 09/02/2020 text/html Time for intake: {{1 2 3 4* 5 6 7 8 9 10 11 12 13 14 15 16 17 18 19 20 21 22 23 2 4 25}} minutes. Rasheed Mejía MD [address] [place] [address], [phone], [facility] 09/02/2020 14:03:05 05/13/2023 text/html Fell on knee in [place] making a diving catch. May have heard knee pop. Since then he feels knee pain all the time. Pain is on the medial half of the knee. Worse with bending. Pain currently 3/10. Can go up to 7 or 8. Sits for job. Not taking pain meds. Aura Alvarado MD [address] [place] [address], [phone], [facility] 05/13/2023 15:08:39
--- OUTSIDE RECORDS SUMMARY | 2024-11-09 09:06 | XMS_ITS | Clinical Summary ---
Author Organization [facility] Address [address] [place] [phone] Phone Care Team Providers Care Sales Office Assistant Name Role Phone Unavailable Primary Care Provider Unavailabl e Immunizations Immunization Administration Dates Next Due DTaP 12/12/2001, 9,06/03/1998,04/10,02/03/1998 HPV, Quadrivalent 02/12/2014,01/12/2013,10/17/19 13 Hep B, ped/adol 09/04/1998,01/07/1998,1997 Hib (PRP-T) 03/17/1999, 8,04/10/1998,02/03 IPV 12/12/2001, 9,04/10/1998,02/03 Influenza 04/02/2009, 8,04/13/2007,05/20,06/03/2005,05/06/2005 Influenza, injectable, quadr ivalent, preservative free 04/30/2015,05/25/2014,07/02/2013 Influenza, injectable, trivalent 06/09/2012,04/04,06/02/2010 MMR 01/09/2003,03/17/1999 Meningococcal Conj (Menactra) MCV4P 12/31/2014,0 11/17/2009 Tdap 11/17/2009 Varicella 12/04/2007,12/23/1998 Family History Relation Name Status Comments Cousin Paternal Cousin s: Healthy Father Alive Father: allergi es Father's Brother Alive Paternal Un saba: diabetes Father's Sister Paternal Aun t: Passed at the age of 8 chromosome issues Maternal Grandfather Mat GFa ther: Alzheimer Maternal Grandmother Mat Gr- GMother: Cancer Mother Alive Mother: da little Other 1 cholesterol or lipids, hypertension Other 2 colon cancer, H eart attack before age 50 Other 3 Healthy Other 4 Alive allergies Other 5 Alive allergies Other 6 Alive allergies, ADD, seizures, learning disability Other 7 Alive diabetes Other 8 Alive diabetes Other 9 Alzheimer Other 10 Cancer Other 11 Cancer Other 12 Passed at the a ge of 8 chromosome issues Other 13 rheumatoid arth ritis Paternal Grandfather Pat Gr- GFather: Cancer Paternal Grandmother Pat GMo ther: rheumatoid arthritis Social History Tobacco Use Types Packs/Day Years Used Date Smoking Tobacco: Never Assessed Sex and Gender Information Value Date Recorded Sex Assigned at Not on file Legal Sex Male 10:21 AM EST Gender Identity Not on file Sexual Orientation Not on file Last Filed Vital Signs Vital Sign Reading Time Taken Comments Blood Pressure 110/67 12/31/2014 12:00 AM EDT Pulse 61 12/31/2014 12:00 AM EDT Temperature 36.9 ??C (98.5 ??F) 08/07/2014 12:[address] Respiratory Rate - - Oxygen Saturation 96% 07/25/2012 12:00 AM EST Inhaled Oxygen Concentration - - Weight 59.7 kg (131 lb 9.6 oz) 12/31/2014 12:00 AM EDT Height 170.8 cm (5' 7.25 ) 12/31/2014 12:00 AM E DT Body Mass Index 20.46 12/31/2014 12:00 AM EDT Plan of Treatment Health Maintenance Due Date Last Done Comments DTaP,Tdap,and Td Vaccines (7 - Td or Tdap) 11/18/2019 11/17/2009, 12/12/2001, 06/09/1999, Additional history exists Influenza Vaccines (#1) 2024 04/30/20 15, 05/25/2014, 07/02/2013, Additional history exists COVID-19 Vaccine ( season) 2024 Hepatitis B Vaccines Completed 09/04/1998, 01/07/1998, 1997 HIB Vaccines Completed 03/17/1999, 12/0 07/1997, 04/10/1998, Additional history exists IPV Vaccines Completed 12/12/2001, 12/03, 04/10/1998, Additional history exists MMR Vaccines Completed 01/09/2003, 03/17/1999 Varicella Vaccines Completed 12/04/2007, 12/23/1998 HPV Vaccines Completed 02/12/2014, 01/01, 10/16/2012 Meningococcal Vaccine Completed 12/31/2014, 010 Hepatitis A Vaccines Aged Out No long er eligible based on patient's age to complete this topic Men B Vaccine Aged Out No longer elig ible based on patient's age to complete this topic Pneumococcal Vaccine Aged Out No long er eligible based on patient's age to complete this topic
--- OUTSIDE RECORDS SUMMARY | 2024-11-09 09:06 | XMS_ITS | Encounter Summary ---
Author Organization [facility] Address [address] [place] [phone] Phone Care Team Providers Care Director Of Student Aid Name Role Phone Tori Phillips MD Primary Care Provider Unavaildona e Encounter Details Date Type Department Care Team (Late st Contact Info) Description 02/09/2017 Conversion Encounter [facility] - [address], [address] [place] [address] Tori Phillips MD Social History Tobacco Use Types Packs/Day Years Used Date Smoking Tobacco: Never Assessed Sex and Gender Information Value Date Recorded Sex Assigned at Not on file Legal Sex Male 10:21 AM EST Gender Identity Not on file Sexual Orientation Not on file documented as of this encounter Plan of Treatment Not on file documented as of this encounter Visit Diagnoses Not on filedocumented in this encounter Care Teams Director Of Student Aid Relationship Specialty Start Date End Date Tori Phillips MD PCP - General 08/24/16 12/30/20 documented as of this encounter
--- NOTE | 2024-11-09 10:39 | MHC.AU.HA3 ---
Hearing Instrument Follow-Up- Binaural Date of Visit: 11/09/24 Right Ear: Make, Model, Color, Serial Number: Joselo Gomez [id number]-UP SN: [id number] Color: Black Shredded Filler Cigar Maker Machine Repair Warranty: 09/13/2024 Shredded Filler Cigar Maker Machine Loss and Damage Warranty: 09/13/2024 [facility] Service Plan: EXP 09/13/2024 Battery Size: 675 Earmold/Dome/CShell/SlimTip:Microsonic M2000 full shell Blue Dispensed By: [facility] Date of Fittin07/15/2021 Left Ear: Make, Model, Color, Serial Number: Joselo Gomez [id number]-UP SN: [id number] Color: Black Shredded Filler Cigar Maker Machine Repair Warranty: 09/13/2024 Shredded Filler Cigar Maker Machine Loss and Damage Warranty: 09/13/2024 [facility] Service Plan: EXP 09/13/2024 Battery Size: 675 Earmold/Dome/CShell/SlimTip: Microsonic M2000 full shell Blue Dispensed By: [facility] Date of Fittin07/15/2021 Follow-Up Summary: Romie reports he is in need to tubing change. Found both tubes hard. Cleaned aids and ran through dehumidifier. Cleaned earmolds. Replaced tubing with TRS Dri Tubes. Listening check positive. Recommendations: Recommendations: Hearing instrument follow-up or maintenance as needed. Diagnosis Code(s): Primary Diagnosis: H90.3 Bilateral Sensorineural Hearing Loss Signature: Provider: Archie Crockett, [facility]
== END 2024-11-09 08:53 | disposition home or self-care (01) ==
LOC: HO.HAP 08:52
PROVIDERS: Visit Provider Internal Medicine
DX: Z46.1 Encounter for fitting and adjustment of hearing aid (principal); H90.3 Sensorineural hearing loss, bilateral
CPT/HCPCS: 92593